=== PATIENT | female | born 1935 ===

== ENCOUNTER → 2021-01-22 08:08 | Outpatient (CLI) | payer OTHER ==
[~2021-01-22 08:08] MED LIST: ACID REDUCER20 M1; AMBIEN5 MG; ARICEPT5 MG; CLONAZEPAM0.125 MG; LEVOXYL100 MCG; MELOXICAM15 MG PO; METFORMIN HCL1000 M2 PO; RESTORIL15 M1; SERTRALINE20 MG/1 ML; SIMVASTATIN5 MG
== END | disposition home or self-care (01) ==
LOC: LAB 08:08
PROVIDERS: ATTEND General Practice
DX: N39.0 Urinary tract infection, site not specified (principal); B96.29 Other Escherichia coli [E. coli] as the cause of diseases classified elsewhere

== ENCOUNTER 2021-01-24 13:52 | Inpatient (IN) | payer OTHER ==
[~2021-01-24] VITALS: Ht 149.9 cm; Wt 47.6 kg
[~2021-01-24 13:52] MED LIST changes: -ACID REDUCER20 M1; -AMBIEN5 MG; -ARICEPT5 MG; -CLONAZEPAM0.125 MG; -LEVOXYL100 MCG; -METFORMIN HCL1000 M2 PO; -RESTORIL15 M1; -SERTRALINE20 MG/1 ML; -SIMVASTATIN5 MG
[2021-01-24] MEDS ORDERED: LEVOXYL100 MCG (14:42)
[2021-01-24] MEDS ORDERED: ACID REDUCER20 M1 (14:42)
[2021-01-24] MEDS ORDERED: METFORMIN HCL1000 M2 PO (14:42)
[2021-01-24] MEDS ORDERED: SIMVASTATIN5 MG (14:43)
[2021-01-24] MEDS ORDERED: SERTRALINE20 MG/1 ML (14:43)
[2021-01-24] MEDS ORDERED: ARICEPT5 MG (14:43)
[2021-01-24] MEDS ORDERED: CLONAZEPAM0.125 MG (14:43)
[2021-01-24] MEDS ORDERED: RESTORIL15 M1 (14:44)
[2021-01-24] MEDS ORDERED: AMBIEN5 MG (14:44)
== END 2021-01-28 17:43 | disposition left against medical advice (07) | DRG 439 ==
LOC: ER 13:52 → MEDI 23:43
PROVIDERS: ADMIT Internal Medicine; ATTEND Internal Medicine
DX: K85.90 Acute pancreatitis without necrosis or infection, unspecified (principal); N39.0 Urinary tract infection, site not specified; R78.81 Bacteremia; E86.0 Dehydration; I10 Essential (primary) hypertension; E11.9 Type 2 diabetes mellitus without complications; E03.9 Hypothyroidism, unspecified; E78.5 Hyperlipidemia, unspecified; B96.20 Unspecified Escherichia coli [E. coli] as the cause of diseases classified elsewhere

== ENCOUNTER 2022-11-25 11:54 | Outpatient (CLI) | payer OTHER ==
[~2022-11-25 11:54] MED LIST changes: +ACID REDUCER20 M1; +AMBIEN5 MG; +ARICEPT5 MG; +CLONAZEPAM0.125 MG; +GABAPENTIN100 MG PO; +GABAPENTIN300 MG PO; +LEVOXYL100 MCG; +METFORMIN HCL1000 M2 PO; +RESTORIL15 M1; +SERTRALINE20 MG/1 ML; +SIMVASTATIN5 MG; +VOLTAREN ARTHRI20 GM TOP
== END 2022-11-25 12:05 | disposition home or self-care (01) ==
LOC: RAD 11:54
DX: M17.0 Bilateral primary osteoarthritis of knee (principal); M25.462 Effusion, left knee

== ENCOUNTER 2025-05-24 11:41 | Inpatient (IN) | payer OTHER ==
[~2025-05-24] VITALS: Ht 152.4 cm; Wt 61.2 kg
[2025-05-24] MEDS ORDERED: TENORMIN50 M1 PO (11:55)
[2025-05-24] MEDS ORDERED: CLONAZEPAM1 MG PO (11:55)
[2025-05-24] MEDS ORDERED: HORIZANT300 MG (11:55)
[2025-05-24] MEDS ORDERED: LOSARTAN POTAS100 MG PO (11:56)
[2025-05-24] MEDS ORDERED: OMEPRAZOLE MAGN20 MG (11:56)
[2025-05-24] MEDS ORDERED: PREGABALIN75 MG PO (11:56)
[2025-05-24] MEDS ORDERED: CLONAZEPAM0.5 MG PO (11:57)
[2025-05-24] MEDS ORDERED: TIROSINT125 MCG (11:57)
--- NOTE | 2025-05-24 11:58 | NUR ---
PTE ALERTA Y ACTIVA LLEGA A ER EN AMBULANCIA. PARAMEDICOS REFIEREN QUE PTE AGUILAR TENDIDO 2 VOMITOS. SE TATYANA S/V Y SE UBICA EN FREDDIE AREA DE OBSERVACION
[2025-05-24] MEDS ORDERED: FAMOTIDINE/PF 20 MG in 0.9 % SODIUM CHLORIDE 8 ML IV PUSH STA (13:18)
[2025-05-24] MEDS ORDERED: 0.9 % SODIUM CHLORIDE 1,000 ML IV SCH ×2 (13:30→22:30)
[2025-05-24] MEDS ORDERED: ONDANSETRON HCL 2 MG/ML VIAL IV ONE (13:30)
[2025-05-24] MEDS ORDERED: ONDANSETRON HCL 2 MG/ML VIAL ONE (14:15)
[2025-05-24] MEDS ORDERED: FAMOTIDINE/PF 20 MG/2 ML VIAL ONE (14:15)
--- NOTE | 2025-05-24 14:42 | NUR ---
SE EDUCA A PACIENTE Y FAMILIAR SOBRE TRATAMIENTO MEDICO EL CUAL REFIERE ENTENDER, SE REALIZA GRAY DE MUESTRAS Y ADMINISTRACION DE MEDICAMENTOS.
[2025-05-24 14:44] LABS: BASO % 0.1 % (0.1-1.2); EOS # 0.00 (0.04-0.54); EOS % 0.0 % (0.7-7.0); LYMPH # 0.37 (1.18-3.74); LYMPH % 2.7 % (19.3-53.1); MEAN PLATELET VOLUME 10.80 fl (9.4-12.4); MONO # 0.10 (0.24-0.82); MONO % 0.7 % (4.7-12.5); NEUT # 13.29 (1.56-6.13); NEUT % 96.1 % (34.0-71.1); RED CELL DISTRIBUTION WIDTH 13.5 % (11.6-14.4)
[2025-05-24 15:06] LABS: ALT/SGPT 22.0 U/L (12-78); AST/SGOT 20.0 U/L (15-37); BILIRUBIN TOTAL 0.41 mg/dL (0.3-1.2); BUN CREA RATIO 25.0 (7.0-25.0); CREATININE SERUM 0.88 mg/dL (0.55-1.02); GFR 60.64; GLOBULINA 4.2 G/DL (2.4-3.5); GLUCOSE FASTING 170.0 mg/dL (65-100); OSMOLALITY SERUM 287.0 MOSM/KG (275-295)
[2025-05-24] MEDS ORDERED: PIPERACILLIN/TAZOBACTAM SODIUM 3.375 GM in DEXTROSE 5 % IN WATER 100 ML IV SCH (20:07)
[2025-05-24] MEDS ORDERED: PIPERACILLIN/TAZOBACTAM SODIUM 3.375 GM VIAL IV ONE (21:22)
[2025-05-24] MEDS ORDERED: FAMOTIDINE/PF 20 MG in 0.9 % SODIUM CHLORIDE 8 ML IV PUSH SCH (22:27)
[2025-05-24] MEDS ORDERED: ATENOLOL 50 MG TABLET PO SCH (22:28)
[2025-05-24] MEDS ORDERED: LOSARTAN POTASSIUM 100 MG TABLET PO SCH (22:29)
[2025-05-24] MEDS ORDERED: PANTOPRAZOLE SODIUM 40 MG in 0.9 % SODIUM CHLORIDE 8 ML IV PUSH SCH (22:30)
[2025-05-24] MEDS ORDERED: ONDANSETRON HCL 2 MG/ML VIAL IV PRN (22:30)
[2025-05-24] MEDS ORDERED: ACETAMINOPHEN 500 MG GEL..CAP PO PRN (22:30)
[2025-05-25] VITALS: BP 133/67; O2SAT 96
[2025-05-25] MEDS ORDERED: PIPERACILLIN/TAZOBACTAM SODIUM 3.375 GM in 0.9 % SODIUM CHLORIDE 100 ML IV SCH
[2025-05-25 00:24] LABS: AST/SGOT 30 U/L (15-37); LDH 302 U/L (84-246)
[2025-05-25 07:18] LABS: BASO % 0.2 % (0.1-1.2); EOS # 0.00 (0.04-0.54); EOS % 0.0 % (0.7-7.0); LYMPH # 1.17 (1.18-3.74); LYMPH % 10.7 % (19.3-53.1); MEAN PLATELET VOLUME 11.50 fl (9.4-12.4); MONO # 0.97 (0.24-0.82); MONO % 8.9 % (4.7-12.5); NEUT # 8.75 (1.56-6.13); NEUT % 79.8 % (34.0-71.1); RED CELL DISTRIBUTION WIDTH 13.9 % (11.6-14.4)
[2025-05-25 07:29] LABS: INR 1.05
[2025-05-25 07:36] LABS: ERYTHROCYTE SEDIMENTATION RATE 11 mm/hr (0-30)
[2025-05-25] MEDS ORDERED: ENOXAPARIN SODIUM 30 MG/0.3 ML SYRINGE SUBCUTANEO SCH (09:00)
[2025-05-25] MEDS ORDERED: ATORVASTATIN CALCIUM 40 MG TABLET PO SCH (09:00)
[2025-05-25 09:11] VITALS: BP 118/70; O2SAT 93
[2025-05-25] MEDS ORDERED: HALOPERIDOL LACTATE 5 MG/ML AMPUL IM PRN (09:15)
[2025-05-25] MEDS ORDERED: MetFORMIN HCL 1000 MG TABLET PO NR (11:00)
[2025-05-25 18:21] VITALS: BP 143/70; O2SAT 95
[2025-05-25 18:38] LABS: BUN CREA RATIO 16.0 (7.0-25.0); CREATININE SERUM 1.04 mg/dL (0.55-1.02); GFR 50.01; GLUCOSE FASTING 73.0 mg/dL (65-100); OSMOLALITY SERUM 287.0 MOSM/KG (275-295)
[2025-05-25] MEDS ORDERED: CLONAZEPAM 0.5 MG TABLET PO SCH (21:00)
[2025-05-26 02:53] VITALS: BP 144/76; O2SAT 96
[2025-05-26 05:34] LABS: BASO % 0.2 % (0.1-1.2); EOS # 0.04 (0.04-0.54); EOS % 0.3 % (0.7-7.0); LYMPH # 0.70 (1.18-3.74); LYMPH % 5.9 % (19.3-53.1); MEAN PLATELET VOLUME 11.40 fl (9.4-12.4); MONO # 1.05 (0.24-0.82); MONO % 8.9 % (4.7-12.5); NEUT # 9.95 (1.56-6.13); NEUT % 84.3 % (34.0-71.1); RED CELL DISTRIBUTION WIDTH 14.0 % (11.6-14.4)
[2025-05-26 06:02] LABS: ALT/SGPT 39.0 U/L (12-78); AST/SGOT 104.0 U/L (15-37); BILIRUBIN TOTAL 0.64 mg/dL (0.3-1.2); BUN CREA RATIO 19.0 (7.0-25.0); CREATININE SERUM 0.86 mg/dL (0.55-1.02); GFR 62.27; GLOBULINA 3.3 G/DL (2.4-3.5); GLUCOSE FASTING 62.0 mg/dL (65-100); OSMOLALITY SERUM 286.0 MOSM/KG (275-295)
[2025-05-26] MEDS ORDERED: MetFORMIN HCL 1000 MG TABLET PO SCH (09:00)
[2025-05-26 09:27] VITALS: BP 160/78; O2SAT 95
[2025-05-26 19:01] VITALS: BP 151/67; O2SAT 95
[2025-05-27 01:28] VITALS: BP 153/84; O2SAT 92
[2025-05-27 09:01] VITALS: BP 143/84; O2SAT 95
[2025-05-27 22:37] VITALS: BP 162/86
[2025-05-28 02:20] VITALS: BP 150/85; O2SAT 94
[2025-05-28 08:39] VITALS: BP 138/81; O2SAT 94
[2025-05-28 20:28] VITALS: BP 156/91
[2025-05-29 01:27] VITALS: BP 159/89; O2SAT 94
[2025-05-29 11:27] VITALS: BP 155/78; O2SAT 99
[2025-05-29] MEDS ORDERED: SODIUM CL 0.9% 100 ML IV.SOLN IV ONE (12:28)
== END 2025-05-29 13:50 | disposition home or self-care (01) | DRG 446 ==
LOC: ER 11:41 → MEDI 22:58
PROVIDERS: General Practice; Surgery; ADMIT Student in an Organized Health Care Education/Training Program; ATTEND Student in an Organized Health Care Education/Training Program
PROC: BW21ZZZ Computerized Tomography (CT Scan) of Abdomen and Pelvis (ICD-10-PCS; principal; 2025-05-24)
PROC: BW40ZZZ Ultrasonography of Abdomen (ICD-10-PCS; 2025-05-24)
DX: K80.10 Calculus of gallbladder with chronic cholecystitis without obstruction (principal); F41.9 Anxiety disorder, unspecified; G30.9 Alzheimer's disease, unspecified; F02.80 Dementia in other diseases classified elsewhere, unspecified severity, without behavioral disturbance, psychotic disturbance, mood disturbance, and anxiety; I10 Essential (primary) hypertension; E11.9 Type 2 diabetes mellitus without complications; Z79.4 Long term (current) use of insulin

== ENCOUNTER 2025-06-04 11:23 | Inpatient (IN) | payer OTHER ==
[~2025-06-04] VITALS: Ht 152.4 cm; Wt 68.0 kg
[~2025-06-04 11:23] MED LIST changes: +CLONAZEPAM0.5 MG PO; +CLONAZEPAM1 MG PO; +HORIZANT300 MG; +LOSARTAN POTAS100 MG PO; +OMEPRAZOLE MAGN20 MG; +PREGABALIN75 MG PO; +TENORMIN50 M1 PO; +TIROSINT125 MCG
[2025-06-04] MEDS ORDERED: PIPERACILLIN/TAZOBACTAM SODIUM 3.375 GM in 0.9 % SODIUM CHLORIDE 100 ML IV SCH (12:10)
[2025-06-04] MEDS ORDERED: LEVALBUTEROL HCL 1.25 MG/3 ML SOLUTION IH SCH (12:10)
[2025-06-04] MEDS ORDERED: METHYLPREDNISOLONE SOD SUCC 125 MG VIAL IV ONE (12:15)
[2025-06-04] MEDS ORDERED: 0.9 % SODIUM CHLORIDE 1,000 ML IV ONE (12:15)
[2025-06-04] MEDS ORDERED: FAMOTIDINE/PF 20 MG/2 ML VIAL IV ONE (12:15)
[2025-06-04 13:01] LABS: BASO % 0.1 % (0.1-1.2); EOS # 0.16 (0.04-0.54); EOS % 1.8 % (0.7-7.0); LYMPH # 0.72 (1.18-3.74); LYMPH % 8.0 % (19.3-53.1); MEAN PLATELET VOLUME 11.00 fl (9.4-12.4); MONO # 0.75 (0.24-0.82); MONO % 8.3 % (4.7-12.5); NEUT # 7.35 (1.56-6.13); NEUT % 81.4 % (34.0-71.1); RED CELL DISTRIBUTION WIDTH 14.8 % (11.6-14.4)
--- NOTE | 2025-06-04 13:01 | NUR ---
PACIENTE LLEGA A MARILU DE EMERGENCIAS EN AMBULANCIA, RESCUE. PACIENTE ALERTA, DESORIENTADA EN TIEMPO Y LUGAR. PACIENTE LLEGA ACOMPANADA DE CLAROS HIJO, SE LE REALIZA ENTREVISTA INICIAL. SE LE TATYANA S/V, EKG, MUESTRAS DE LABORATORIOS Y SE LE REALIZA CANALIZACION, SE LE ORIENTA PACIENTE Y FAMILIAR, SE UBICA PARA SER EVALUADO.
[2025-06-04] MEDS ORDERED: FAMOTIDINE/PF 20 MG/2 ML VIAL ONE (13:23)
[2025-06-04] MEDS ORDERED: METHYLPREDNISOLONE SOD SUCC 125 MG VIAL ONE (13:23)
[2025-06-04] MEDS ORDERED: PIPERACILLIN/TAZOBACTAM SODIUM 3.375 GM VIAL IV ONE ×2 (13:23→17:52)
[2025-06-04 13:29] LABS: INR 1.08
[2025-06-04] MEDS ORDERED: LEVALBUTEROL HCL 0.63 MG/3 ML SOLUTION IH ONE ×2 (13:36→16:01)
[2025-06-04 13:50] LABS: ALT/SGPT 30.0 U/L (12-78); AST/SGOT 26.0 U/L (15-37); BILIRUBIN TOTAL 0.54 mg/dL (0.3-1.2); BUN CREA RATIO 16.0 (7.0-25.0); CREATININE SERUM 0.69 mg/dL (0.55-1.02); GFR 80.29; GLOBULINA 3.7 G/DL (2.4-3.5); GLUCOSE FASTING 118.0 mg/dL (65-100); OSMOLALITY SERUM 285.0 MOSM/KG (275-295)
[2025-06-04 13:58] LABS: COVID-19 AG NEGATIVE (NEGATIVE)
[2025-06-04] MEDS ORDERED: DEXTROSE 50 % IN WATER 0.5 G/ML DISP.SYRIN IV PRN (18:15)
[2025-06-04] MEDS ORDERED: INSULIN LISPRO 1,000 UNIT/10 ML UNITS SUBCUTANEO PRN (18:15)
[2025-06-04 18:59] VITALS: BP 100/70
[2025-06-04 21:23] VITALS: BP 140/78; O2SAT 96
[2025-06-05 00:25] VITALS: BP 148/83; O2SAT 94
[2025-06-05 05:07] LABS: BASO % 0.1 % (0.1-1.2); EOS # 0.00 (0.04-0.54); EOS % 0.0 % (0.7-7.0); LYMPH # 0.39 (1.18-3.74); LYMPH % 3.8 % (19.3-53.1); MEAN PLATELET VOLUME 10.70 fl (9.4-12.4); MONO # 0.50 (0.24-0.82); MONO % 4.9 % (4.7-12.5); NEUT # 9.20 (1.56-6.13); NEUT % 90.7 % (34.0-71.1); RED CELL DISTRIBUTION WIDTH 14.5 % (11.6-14.4)
[2025-06-05 05:33] LABS: INR 1.11
[2025-06-05 05:34] LABS: BUN CREA RATIO 15.0 (7.0-25.0); CREATININE SERUM 0.88 mg/dL (0.55-1.02); GFR 60.64; GLUCOSE FASTING 132.0 mg/dL (65-100); OSMOLALITY SERUM 285.0 MOSM/KG (275-295)
[2025-06-05 08:13] VITALS: BP 138/79; O2SAT 90
[2025-06-05] MEDS ORDERED: POTASSIUM CHLORIDE IN WATER 40 MEQ/100 ML PIGGYBAG IV NR (09:00)
[2025-06-05 16:31] VITALS: BP 159/81; O2SAT 97
[2025-06-06] MEDS ORDERED: SODIUM CL 0.9% 100 ML IV.SOLN IV ONE (00:19)
[2025-06-06 02:25] VITALS: BP 177/84; O2SAT 95
[2025-06-06 09:30] VITALS: BP 164/83; O2SAT 97
[2025-06-06 18:21] VITALS: BP 165/90
[2025-06-07 00:26] VITALS: BP 138/82; O2SAT 95
[2025-06-07] MEDS ORDERED: PIPERACILLIN/TAZOBACTAM SODIUM 3.375 GM VIAL IV ONE (07:20)
[2025-06-07 08:27] VITALS: BP 134/80; O2SAT 94
[2025-06-07] MEDS ORDERED: AZITHROMYCIN 500 MG VIAL IV NR (11:00)
[2025-06-07] MEDS ORDERED: CEFTRIAXONE SODIUM 2,000 MG in 0.9 % SODIUM CHLORIDE 100 ML IV SCH (12:00)
[2025-06-07 13:05] LABS: BUN CREA RATIO 18.0 (7.0-25.0); CREATININE SERUM 0.82 mg/dL (0.55-1.02); GFR 65.79; GLUCOSE FASTING 150.0 mg/dL (65-100); OSMOLALITY SERUM 283.0 MOSM/KG (275-295)
[2025-06-07 17:50] VITALS: BP 143/78; O2SAT 98
[2025-06-08 01:10] VITALS: BP 124/79; O2SAT 98
[2025-06-08 07:18] LABS: BASO % 0.2 % (0.1-1.2); EOS # 0.08 (0.04-0.54); EOS % 0.9 % (0.7-7.0); LYMPH # 1.08 (1.18-3.74); LYMPH % 12.8 % (19.3-53.1); MEAN PLATELET VOLUME 11.00 fl (9.4-12.4); MONO # 0.86 (0.24-0.82); MONO % 10.2 % (4.7-12.5); NEUT # 6.38 (1.56-6.13); NEUT % 75.4 % (34.0-71.1); RED CELL DISTRIBUTION WIDTH 14.7 % (11.6-14.4)
[2025-06-08 08:29] VITALS: BP 150/92; O2SAT 94
[2025-06-08] MEDS ORDERED: AZITHROMYCIN 500 MG VIAL IV SCH (09:00)
[2025-06-08 09:28] LABS: ALT/SGPT 23.0 U/L (12-78); AST/SGOT 24.0 U/L (15-37); BILIRUBIN TOTAL 0.63 mg/dL (0.3-1.2); BUN CREA RATIO 20.0 (7.0-25.0); CREATININE SERUM 0.87 mg/dL (0.55-1.02); GFR 61.45; GLOBULINA 3.8 G/DL (2.4-3.5); GLUCOSE FASTING 113.0 mg/dL (65-100); OSMOLALITY SERUM 287.0 MOSM/KG (275-295)
[2025-06-08] MEDS ORDERED: SPIRONOLACTONE 25 MG TABLET PO NR (12:45)
[2025-06-08 12:59] LABS: URINE BILIRRUBIN Negative (NEGATIVE); URINE BLOOD Negative; URINE COLOR Yellow; URINE GLUCOSE Negative (NEGATIVE); URINE KETONE Negative (NEGATIVE); URINE LEUKOCYTE Negative; URINE NITRATE Negative; URINE PROTEIN Negative (NEGATIVE); URINE UROBILINOGEN 1.0 E.U./dl
[2025-06-08] MEDS ORDERED: POTASSIUM CHLORIDE IN WATER 100 ML IV SCH (13:00)
[2025-06-08 13:02] LABS: URINE BACTERIA 8.0 uL (0.0-1933); URINE CAST 1.41 uL (0.0-1.40); URINE EPITHELIAL CELLS 5.6 uL (0.0-38.8); URINE RBC 5.5 uL (0.0-20.8); URINE WBC 3.5 uL (0.0-23.2)
[2025-06-08 13:05] LABS: URINE APPEARANCE CLOUDY
[2025-06-08 18:43] VITALS: BP 134/84
[2025-06-09 01:45] VITALS: BP 117/72; O2SAT 99
[2025-06-09 08:22] LABS: BUN CREA RATIO 30.0 (7.0-25.0); CREATININE SERUM 0.73 mg/dL (0.55-1.02); GFR 75.24; GLUCOSE FASTING 128.0 mg/dL (65-100); OSMOLALITY SERUM 286.0 MOSM/KG (275-295)
[2025-06-09 08:33] VITALS: BP 127/77; O2SAT 95
[2025-06-09] MEDS ORDERED: ATENOLOL 50 MG TABLET PO STA (08:56)
[2025-06-09] MEDS ORDERED: SPIRONOLACTONE 25 MG TABLET PO SCH (09:00)
== END 2025-06-09 13:40 | disposition home or self-care (01) | DRG 291 ==
LOC: ER 11:23 → MEDI 18:16
PROVIDERS: General Practice; Internal Medicine; ADMIT Student in an Organized Health Care Education/Training Program; ATTEND Student in an Organized Health Care Education/Training Program
PROC: 3E0F7GC Introduction of Other Therapeutic Substance into Respiratory Tract, Via Natural or Artificial Opening (ICD-10-PCS; principal; 2025-06-04)
PROC: B246ZZZ Ultrasonography of Right and Left Heart (ICD-10-PCS; 2025-06-04)
PROC: 4A033R1 Measurement of Arterial Saturation, Peripheral, Percutaneous Approach (ICD-10-PCS; 2025-06-04)
PROC: BB24ZZZ Computerized Tomography (CT Scan) of Bilateral Lungs (ICD-10-PCS; 2025-06-05)
DX: I50.9 Heart failure, unspecified (principal); J18.9 Pneumonia, unspecified organism; R06.02 Shortness of breath